=== PATIENT | female | born 1980 | race Caucasian/White ===

== ENCOUNTER 2021-06-20 13:09 | Outpatient (CLI) | payer BC, SELFPAY ==
--- NOTE | ~2021-06-20 | US_ITS ---
EXAMINATION: US pelvic complete w TV DATE: 06/20/2021 13:55 INDICATION: Left pelvic pain. Vaginal bleeding. Comparison:No prior studies for comparison. TECHNIQUE: Multiple transabdominal and endovaginal sonographic images of the pelvis performed. FINDINGS: The uterus measures 10 x 6.7 x 5.7 cm. There is an IUD in the endometrium. There is a tony l mass measuring 2.4 cm, consistent with a fibroid. The endometrial complex measures 4 mm. The right ovary measures 2.9 x 2.1 x 2.1 cm and the left ovary measures 2.7 x 2.6 x 1.9 cm. There ar e small follicles in each ovary. Normal doppler signal in both ovaries. There is no free fluid in the pelvis. There are no abnormal masses seen on either side. IMPRESSION: 1. Mildly enlarged uterus with 2.4 cm fibroid located at the fundus. IUD in expected position. Reviewed, dictated and finalized at location B. IMPRESSION: 1. Mildly enlarged uterus with 2.4 cm fibroid located at the fundus. IUD in exp ected position.
== END 2021-06-20 13:10 | disposition home or self-care (01) ==
LOC: ANHIMG 13:14
PROVIDERS: PCP Internal Medicine; Visit Provider Nurse Practitioner
DX: R10.2 Pelvic and perineal pain (principal); D25.9 Leiomyoma of uterus, unspecified
CPT/HCPCS: 76830; 76856